=== PATIENT | female | born 1955 | race Two or more races ===

== ENCOUNTER 2020-12-10 12:20 | Inpatient (IN) | payer OTHER ==
[~2020-12-10] VITALS: Ht 162.6 cm; Wt 81.5 kg
[2020-12-10] MEDS ORDERED: MORPHINE SULFATE 4 MG/ML SYR/VIAL ONE (12:35)
[2020-12-10] MEDS ORDERED: ONDANSETRON HCL 4 MG/2 ML VIAL ONE (12:35)
[2020-12-10] MEDS ORDERED: HEPARIN SODIUM (PORCINE) 5000 UNITS/ML 1ML VIAL ONE (12:40)
[2020-12-10] MEDS ORDERED: MORPHINE SULFATE 4 MG/ML SYR/VIAL IV ONE (12:45)
[2020-12-10] MEDS ORDERED: ONDANSETRON HCL 4 MG/2 ML VIAL IV ONE (12:45)
[2020-12-10] MEDS ORDERED: HEPARIN SODIUM (PORCINE) 5000 UNITS/ML 1ML VIAL IV ONE (12:45)
[2020-12-10] MEDS ORDERED: ANGIOMAX 250 MG VIAL IV ONE (13:04)
[2020-12-10] MEDS ORDERED: IODIXANOL 320MG/ML 100ML BTL IV ONE (13:05)
[2020-12-10] MEDS ORDERED: MIDAZOLAM HCL 1MG/1ML-2 ML VIAL ONE (13:05)
[2020-12-10] MEDS ORDERED: LIDOCAINE 2%HCL (LOCAL ANESTH.) INJ 20ML MDV ONE (13:05)
[2020-12-10] MEDS ORDERED: fentaNYL CITRATE 100 MCG/2 ML VL ONE (13:05)
[2020-12-10] MEDS ORDERED: HEPARIN IN NS 1000Units/500mL 1,500 ML ONE (13:05)
[2020-12-10] MEDS ORDERED: SODIUM CHL 0.9% 50 ML ONE (13:05)
[2020-12-10 13:38] LABS: Basophils # (auto) 0 10 ^3/uL (0-0.2); Basophils % (auto) 1.2 % (0.0-2.0); Eosinophils # (auto) 0 10 ^3/uL (0-0.8); Eosinophils % (auto) 0.8 % (0.0-7.0); Hematocrit 44.7 % (36.0-46.0); Hemoglobin 14.6 g/dL (12.2-16.2); Lymphocytes # (auto) 0.9 10 ^3/uL (0.4-5.4); Lymphocytes % (auto) 22.4 % (10.0-50.0); Mean Corpuscular Hemoglobin 30.5 pg (28.0-32.0); Mean Corpuscular Hgb Conc. 32.6 g/dL (32.0-36.0); Mean Corpuscular Volume 93.6 fL (80.0-100.0); Monocytes # (auto) 0.4 10 ^3/uL (0-1.3); Neutrophils # (auto) 2.6 10 ^3/uL (1.6-8.6); Neutrophils % (auto) 64.6 % (37.0-80.0); Nucleated Red Blood Cells % 0.3 %; Platelet Count (auto) 194 10^3/uL (140-450); Red Blood Cells 4.78 10^6/uL (4.0-5.20); Red Cell Distribution Width 17.2 % (11.8-14.3); White Blood Cell 4.1 10^3/uL (4.4-10.8)
[2020-12-10] MEDS ORDERED: EPTIFIBATIDE INJ (2MG/ML) 10ML VIAL IV ONE (13:39)
[2020-12-10] MEDS ORDERED: TICAGRELOR 90 MG TAB ONE (13:49)
[2020-12-10 13:58] LABS: Albumin 3.9 g/dL (3.4-5.0); Potassium 3.4 mmol/L (3.5-5.1)
[2020-12-10] MEDS ORDERED: ATROPINE SULF 1 MG/10ml SYR ONE (13:58)
[2020-12-10 14:03] LABS: BUN/Creatinine Ratio 18.2; Bilirubin, Total 0.8 mg/dL (0.2-1.0); Total Protein 7.1 g/dL (6.4-8.2)
[2020-12-10] MEDS ORDERED: NITROGLYCERIN 0.4 MG SL TAB SL PRN (14:15)
[2020-12-10] MEDS ORDERED: ACETAMINOPHEN 500 MG TAB PO PRN (14:15)
[2020-12-10] MEDS ORDERED: SODIUM CHL 0.9% 500 ML IV ONE (14:15)
[2020-12-10] MEDS ORDERED: HYDROcodone-ACET 5/325MG TAB PO PRN (14:15)
[2020-12-10] MEDS ORDERED: MORPHINE SULF INJ 2 MG/ML SYRINGE 1ML IV PRN (14:15)
[2020-12-10 14:22] LABS: INR 1.21 (0.9-1.15)
[2020-12-10 14:27] LABS: Partial Thromboplastin Time 122.7 sec (23.0-31.2)
[2020-12-10 15:37] VITALS: BP 100/59
[2020-12-10] MEDS ORDERED: METH2.5T PO (16:35)
[2020-12-10] MEDS ORDERED: LOSA100T25 PO (16:35)
[2020-12-10] MEDS ORDERED: HYDR200T36 PO (16:35)
[2020-12-10 16:53] VITALS: BP 100/59
[2020-12-10] MEDS: hydrOXYchloroQUINE SULFATE 200 MG TAB PO SCH (21:42)
[2020-12-10 22:00] VITALS: BP 136/75
[2020-12-10] MEDS ORDERED: METHOTREXATE 2.5 MG TAB PO ONE (22:00)
[2020-12-10] MEDS ORDERED: ATORVASTATIN 20 MG TAB PO SCH (22:00)
[2020-12-10] MEDS: NICOTINE 21MG/24 HR TOPICAL PATCH TD SCH (23:03)
[2020-12-11 05:51] VITALS: BP 145/62
[2020-12-11 06:53] LABS: Basophils # (auto) 0 10 ^3/uL (0-0.2); Basophils % (auto) 0.8 % (0.0-2.0); Eosinophils # (auto) 0 10 ^3/uL (0-0.8); Eosinophils % (auto) 0.4 % (0.0-7.0); Hematocrit 40.5 % (36.0-46.0); Hemoglobin 13.3 g/dL (12.2-16.2); Lymphocytes # (auto) 0.7 10 ^3/uL (0.4-5.4); Lymphocytes % (auto) 13.5 % (10.0-50.0); Mean Corpuscular Hemoglobin 30.5 pg (28.0-32.0); Mean Corpuscular Hgb Conc. 32.9 g/dL (32.0-36.0); Mean Corpuscular Volume 92.7 fL (80.0-100.0); Monocytes # (auto) 0.5 10 ^3/uL (0-1.3); Monocytes % (auto) 10.6 % (0.0-12.0); Neutrophils # (auto) 3.7 10 ^3/uL (1.6-8.6); Neutrophils % (auto) 74.7 % (37.0-80.0); Nucleated Red Blood Cells % 0.1 %; Platelet Count (auto) 188 10^3/uL (140-450); Red Blood Cells 4.37 10^6/uL (4.0-5.20); White Blood Cell 4.9 10^3/uL (4.4-10.8)
[2020-12-11 07:03] LABS: Calcium 8.9 mg/dL (8.5-10.1); Potassium 3.6 mmol/L (3.5-5.1)
[2020-12-11 07:25] LABS: BUN/Creatinine Ratio 16.1
[2020-12-11 08:38] VITALS: BP 135/64
[2020-12-11] MEDS: NICOTINE 21MG/24 HR TOPICAL PATCH TD SCH (09:18)
[2020-12-11] MEDS: hydrOXYchloroQUINE SULFATE 200 MG TAB PO SCH (09:20)
[2020-12-11] MEDS ORDERED: TICAGRELOR 90 MG TAB PO SCH (10:00)
[2020-12-11] MEDS ORDERED: ASPirin-EC 81 mg tab PO SCH (10:00)
[2020-12-11] MEDS ORDERED: SACUBITRIL-VALSARTAN 24mg/26mg TAB PO SCH (10:00)
[2020-12-11 13:00] VITALS: BP 131/68
[2020-12-11] MEDS ORDERED: ONDANSETRON HCL 4 MG/2 ML VIAL IV PRN (14:00)
[2020-12-11] MEDS ORDERED: POTASSIUM CHL 20 Meq TABLET PO ONE (15:15)
[2020-12-11 16:53] VITALS: BP 131/85
[2020-12-17] MEDS ORDERED: METHOTREXATE 2.5 MG TAB PO SCH ×2 (10:00→20:00)
== END 2020-12-11 17:48 | disposition home or self-care (01) | DRG 247 ==
LOC: ER 12:20 → EDBD 12:20 → TELE 14:15 → TELE-WESTW 15:34
PROVIDERS: ADMIT Internal Medicine Cardiovascular Disease; ATTEND Internal Medicine Cardiovascular Disease
PROC: 027034Z Dilation of Coronary Artery, One Artery with Drug-eluting Intraluminal Device, Percutaneous Approach (ICD-10-PCS; principal; 2020-12-10)
PROC: 02C03ZZ Extirpation of Matter from Coronary Artery, One Artery, Percutaneous Approach (ICD-10-PCS; 2020-12-10)
PROC: 4A023N6 Measurement of Cardiac Sampling and Pressure, Right Heart, Percutaneous Approach (ICD-10-PCS; 2020-12-10)
PROC: B211YZZ Fluoroscopy of Multiple Coronary Arteries using Other Contrast (ICD-10-PCS; 2020-12-10)
PROC: B215YZZ Fluoroscopy of Left Heart using Other Contrast (ICD-10-PCS; 2020-12-10)
PROC: 3E073PZ Introduction of Platelet Inhibitor into Coronary Artery, Percutaneous Approach (ICD-10-PCS; 2020-12-10)
DX: I21.19 ST elevation (STEMI) myocardial infarction involving other coronary artery of inferior wall (principal); Z20.822 Contact with and (suspected) exposure to COVID-19; I10 Essential (primary) hypertension; I25.10 Atherosclerotic heart disease of native coronary artery without angina pectoris; J44.9 Chronic obstructive pulmonary disease, unspecified; M06.9 Rheumatoid arthritis, unspecified; Z88.8 Allergy status to other drugs, medicaments and biological substances
CPT/HCPCS: 36415; 71045; 80048; 80053; 84484; 85025; 85379; 85610; 85730; 86850; 86900; 86901; 87426; 92928; 92973; 93005; 93458; 96374; 96375; 99152; 99153; C1874; C1887; G0378; J2250; J2405; Q9967